=== PATIENT | male | born 1970 | race Caucasian/White ===

== ENCOUNTER 2023-06-22 00:40 | Observation (INO) ==
--- NOTE | 2023-06-22 00:48 | Emergency Department Note ---
History of Present Illness General Chief complaint: Chest Pain Stated complaint: CHEST PAIN,SOB Time Seen by Provider: 06/22/23 00:47 History of Present Illness Maximum Pain Intensity: 6 This 52-year-old male patient presents to the emergency department for evaluation of chest pain and shortness of breath that started around 11 am. The patient states that he has had severe midsternal chest pain and shortness of breath for most of the day. Pain is radiating to his left ear and left s houlder. He has a history of acid reflux and initially thought it was acid reflux, but now he is concerned about his heart. He rates his discomfort as 6/10. They were recently on vacation camping at [facility] and he forgot to take his medications so he went 1 week without his medication. He restarted his medication 4 days ago. He tried OTC acid reflux medications and tums without improvement tonight. He denies a history of heart problems. He had a stress test and ECHO at least 10 years ago that was normal per patient. His mom had a heart valve replaced and dad with a history of HTN. No family history of RI or other cardiac problems. The patient denies recent long car or plane rides or recent injury/trauma/surgery. Denies any personal or family history of blood clots or bleeding disorders. Denies any hormonal medication use. Denies any hemoptysis. Has had intermittent cramping in his right calf when he wakes up, but it resolves after stretching. No known tick bites. He has not taken any aspirin today. Denies fevers or URI symptoms. No history of IV drug use. No history of previous known heart murmur. He is on Paroxetine 20 mg, Propranolol 40 mg, Atorvastatin 20 mg, Nexium 40 mg, Lisinopril 40 mg, amlodipine 5 mg. Denies any erectile dysfunction medications. Home Medications Medication Instructions Recorded Confirmed Type amlodipine 5 mg tablet 5 mg PO DAILY 06/22/23 06/22/23 History atorvastatin 20 mg tablet 20 mg PO DAILY 06/22/23 06/22/23 History esomeprazole magnesium 40 mg 40 mg PO DAILY 06/22/23 06/22/23 History capsule,delayed release lisinopril 40 mg tablet 40 mg PO DAILY 06/22/23 06/22/23 History propranolol 40 mg tablet 40 mg PO BID 06/22/23 06/22/23 History Allergies Allergy/AdvReac Type Severity Reaction Status Date / Time hydrocodone Allergy Rash Verified 06/22/23 00:59 Past Med/Surg History Medical History Depression GERD (gastroesophageal reflux disease) High cholesterol Hypertension Surgical History History of appendectomy Social History Smoking Status: Never smoker Second Hand Exposure: No; Hx Alcohol Use: Yes Alcohol type: beer Hx Substance Use: No Preferred Language: Telugu Communication Ability: Effective 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 Physical Exam Vital Signs Vital Signs - 24 hr 06/22/23 00:43 06/22/23 01:02 06/22/23 01:30 Temperature 36.8 C Temperature Source Temporal Artery Scan Pulse Rate 67 64 63 Pulse Rate [Apical] Pulse Rate from SpO2 Sensor Pulse Rhythm [Apical] Pulse Strength [Apical] Respiratory Rate 20 18 Respiratory Effort / Characteristics Non-Labored Spontaneous Respiratory Depth Normal Blood Pressure 169/100 H Blood Pressure [Right Arm] Blood Pressure Mean 123 Blood Pressure Mean [Right Arm] Pulse Oximetry 99 96 Oxygen Delivery Method Room Air Room Air Sepsis Recent Fever Within 48 Hours No Sepsis New/Unexplained Change in Mental Status No Sepsis Action Taken by Nursing No Action Required 06/22/23 00:56 06/22/23 01:00 06/22/23 01:01 Temperature Temperature Source Pulse Rate 66 63 62 Pulse Rate [Apical] Pulse Rate from SpO2 Sensor 67 64 64 Pulse Rhythm [Apical] Pulse Strength [Apical] Respiratory Rate 22 18 24 Respiratory Effort / Characteristics Respiratory Depth Blood Pressure Blood Pressure [Right Arm] Blood Pressure Mean Blood Pressure Mean [Right Arm] Pulse Oximetry 97 97 96 Oxygen Delivery Method Sepsis Recent Fever Within 48 Hours Sepsis New/Unexplained Change in Mental Status Sepsis Action Taken by Nursing 06/22/23 01:01 06/22/23 01:10 06/22/23 01:17 Temperature Temperature Source Pulse Rate 60 Pulse Rate [Apical] Pulse Rate from SpO2 Sensor 61 Pulse Rhythm [Apical] Pulse Strength [Apical] Respiratory Rate 16 Respiratory Effort / Characteristics Respiratory Depth Blood Pressure 214/115 H 154/90 H Blood Pressure [Right Arm] Blood Pressure Mean 144 106 Blood Pressure Mean [Right Arm] Pulse Oximetry 96 Oxygen Delivery Method Sepsis Recent Fever Within 48 Hours Sepsis New/Unexplained Change in Mental Status Sepsis Action Taken by Nursing 06/22/23 01:17 06/22/23 01:20 06/22/23 01:30 Temperature Temperature Source Pulse Rate 57 L 58 L 60 Pulse Rate [Apical] Pulse Rate from SpO2 Sensor 58 L 61 59 L Pulse Rhythm [Apical] Pulse Strength [Apical] Respiratory Rate 18 19 18 Respiratory Effort / Characteristics Respiratory Depth Blood Pressure Blood Pressure [Right Arm] Blood Pressure Mean Blood Pressure Mean [Right Arm] Pulse Oximetry 96 96 95 Oxygen Delivery Method Sepsis Recent Fever Within 48 Hours Sepsis New/Unexplained Change in Mental Status Sepsis Action Taken by Nursing 06/22/23 01:40 06/22/23 01:50 06/22/23 02:00 Temperature Temperature Source Pulse Rate 58 L 56 L Pulse Rate [Apical] Pulse Rate from SpO2 Sensor 57 L 56 L Pulse Rhythm [Apical] Pulse Strength [Apical] Respiratory Rate 19 20 Respiratory Effort / Characteristics Respiratory Depth Blood Pressure 137/79 Blood Pressure [Right Arm] Blood Pressure Mean 96 Blood Pressure Mean [Right Arm] Pulse Oximetry 96 95 Oxygen Delivery Method Sepsis Recent Fever Within 48 Hours Sepsis New/Unexplained Change in Mental Status Sepsis Action Taken by Nursing 06/22/23 02:00 06/22/23 02:10 06/22/23 02:20 Temperature Temperature Source Pulse Rate 53 L 55 L 59 L Pulse Rate [Apical] Pulse Rate from SpO2 Sensor 53 L 55 L 60 Pulse Rhythm [Apical] Pulse Strength [Apical] Respiratory Rate 15 16 17 Respiratory Effort / Characteristics Respiratory Depth Blood Pressure Blood Pressure [Right Arm] Blood Pressure Mean Blood Pressure Mean [Right Arm] Pulse Oximetry 96 95 95 Oxygen Delivery Method Sepsis Recent Fever Within 48 Hours Sepsis New/Unexplained Change in Mental Status Sepsis Action Taken by Nursing 06/22/23 02:30 06/22/23 02:32 06/22/23 02:32 Temperature Temperature Source Pulse Rate 60 63 Pulse Rate [Apical] Pulse Rate from SpO2 Sensor 61 65 Pulse Rhythm [Apical] Pulse Strength [Apical] Respiratory Rate 17 20 Respiratory Effort / Characteristics Respiratory Depth Blood Pressure 152/89 H Blood Pressure [Right Arm] Blood Pressure Mean 96 Blood Pressure Mean [Right Arm] Pulse Oximetry 95 96 Oxygen Delivery Method Sepsis Recent Fever Within 48 Hours Sepsis New/Unexplained Change in Mental Status Sepsis Action Taken by Nursing 06/22/23 02:41 Temperature Temperature Source Pulse Rate Pulse Rate [Apical] 58 L Pulse Rate from SpO2 Sensor Pulse Rhythm [Apical] Regular Pulse Strength [Apical] Normal Respiratory Rate 16 Respiratory Effort / Characteristics Non-Labored Respiratory Depth Normal Blood Pressure Blood Pressure [Right Arm] 133/76 Blood Pressure Mean Blood Pressure Mean [Right Arm] 95 Pulse Oximetry 98 Oxygen Delivery Method Sepsis Recent Fever Within 48 Hours Sepsis New/Unexplained Change in Mental Status Sepsis Action Taken by Nursing VITALS: Vitals are noted on the nurse's note and reviewed by myself. GENERAL: Non toxic, no acute distress, non-diaphoretic. SKIN: Capillary refill <2 sec. EYES: PERRLA. EOMI. Conjunctivae without injection, sclerae without icterus. NOSE: Patent without discharge. MOUTH: Mucous membranes moist. Uvula midline. Airway patent. NECK: Supple without nuchal rigidity. HEART: Regular rate and rhythm with Grade II/ murmur without obvious gallops or rubs. LUNGS: Clear to auscultation bilaterally without wheezes, rales or rhonchi. No retractions or accessory muscle use. ABDOMEN: Positive bowel sounds x 4. Normal tympanic percussion. Soft, nontender, without masses or organomegaly. Higgins sign negative. No guarding or rebound tenderness. No focal RLQ or LLQ tenderness. MUSCULOSKELETAL: No gross musculoskeletal defects. Bilateral calves are nontender to palpation. Negative Homans' sign bilaterally. Peripheral pulses 2+ and equal in the bilateral upper and lower extremities. NEURO: Patient was alert and oriented to person place and time. No focal neuro logical deficits. Course Administered Medications Amlodipine Besylate (Amlodipine Besylate 5 Mg Tab) 5 mg PO DAILY [facility] Stop: 07/22/23 08:59 Last Admin: 06/22/23 07:39 Dose: 5 mg Documented By: CLARISA Atorvastatin Calcium (Atorvastatin 20 Mg Tab) 20 mg PO DAILY [facility] Stop: 07/22/23 08:59 Last Admin: 06/22/23 07:39 Dose: 20 mg Documented By: CLARISA Famotidine (Famotidine 40 Mg Tablet) 40 mg PO BID PRN PRN Reason: acid reflux/heartburn/chest pa Stop: 07/22/23 04:18 Last Admin: 06/22/23 07:39 Dose: 40 mg Documented By: CLARISA Lisinopril (Lisinopril 40 Mg Tab) 40 mg PO DAILY [facility] Stop: 07/22/23 08:59 Last Admin: 06/22/23 07:41 Dose: 40 mg Documented By: CLARISA Pantoprazole Sodium (Pantoprazole 40 Mg Tab) 40 mg PO DAILY [facility] Stop: 07/22/23 08:59 Last Admin: 06/22/23 07:40 Dose: 40 mg Documented By: CLARISA Propranolol HCl (Propranolol Hcl 20 Mg Tab) 40 mg PO BID [facility] Stop: 07/22/23 08:59 Last Admin: 06/22/23 07:41 Dose: Not Given Documented By: CLARISA Discontinued Medications Aspirin (Aspirin Chew 324 Mg) 324 mg PO NOW STA Stop: 06/22/23 01:03 Last Admin: 06/22/23 01:11 Dose: 324 mg Documented By: MED Sodium Chloride (Nss) 500 mls @ 999 mls/hr IV .Q31M STA Stop: 06/22/23 01:32 Last Infusion: 06/22/23 02:17 Dose: 0 mls/hr Documented By: net fisher: 06/22/23 01:13 Dose: 999 mls/hr Documented By: CHEN Famotidine (Pepcid 20mg Iv Push) 20 mg in 5 mls @ 2.5 mls/min IV NOW STA Stop: 06/22/23 02:35 Last Admin: 06/22/23 02:48 Dose: 2.5 mls/min Documented By: AUNG Nitroglycerin (Nitroglycerin Sl 0.4 Mg/Tab Tab) 0.4 mg SL NOW STA Stop: 06/22/23 01:03 Last Admin: 06/22/23 01:12 Dose: 0.4 mg Documented By: CHEN Nitroglycerin (Nitroglycerin Sl 0.4 Mg/Tab Tab) 0.4 mg SL NOW STA Stop: 06/22/23 01:29 Last Admin: 06/22/23 01:29 Dose: 0.4 mg Documented By: MED Medical Decision Making Differential Diagnosis Differential diagnosis includes angina, RI, pericarditis, myocarditis, aortic dissection, pleurisy, pneumothorax, PE, pneumonia, pneumomediastinum, esoph agitis, esophageal spasm, GERD, perforated esophagus, perforated duodenal/gastric ulcer, pancreatitis, cholecystitis, costochondritis, musculoskeletal, bronchitis, URI, or others. Laboratory Data Attestation: I reviewed the patient's lab results. 06/22/23 01:02 06/22/23 01:02 Lab Results 06/22/23 06/22/23 06/22/23 Range/Units 01:02 01:02 01:02 WBC 10.43 (4.8-10.8) K/ul RBC 4.69 L (4.70-6.10) M/uL Hgb 14.1 (14.0-18.0) g/dl Hct 41.5 L (42.0-52.0) % MCV 88.5 (80.0-100.0) fL MCH 30.1 (25.0-34.0) pg MCHC 34.0 (32.0-36.0) g/dL RDW Std Deviation 42.0 (36.4-46.3) fL RDW Coeff of Keira 12.9 (11.5-14.5) % Plt Count 215 (130-400) K/uL MPV 10.8 (9.4-12.4) fL Immature Gran % (Auto) 0.3 % Neut % (Auto) 65.4 % Lymph % (Auto) 19.7 % Trigg % (Auto) 13.7 % Eos % (Auto) 0.5 % Baso % (Auto) 0.4 % Neut # (Auto) 6.83 H (1.40-6.50) K/uL Lymph # (Auto) 2.05 (1.2-3.4) K/uL Trigg # (Auto) 1.43 H (0.11-0.59) K/uL Eos # (Auto) 0.05 (0-0.50) K/uL Baso # (Auto) 0.04 (0-0.2) K/uL Immature Gran # (Auto) 0.03 (0.01-0.20) K/uL PT 10.6 (9.0-12.0) Seconds INR 1.0 (0.9-1.1) APTT 24.4 (21.0-31.0) Seconds PTT Ratio 0.9 D-Dimer 240 (0-500) ug/L FEU Sodium 135 L (136-145) mmol/L Potassium 3.8 (3.5-5.1) mmol/L Chloride 103 (98-107) mmol/L Carbon Dioxide 26 (21-32) mmol/L Anion Gap 6 (3-11) BUN 18 (6-23) mg/dl Creatinine 1.05 (0.6-1.4) mg/dl Est Cr Clr Drug Dosing 103.1 ml/min Est GFR ( Amer) 93.5 ml/min Est GFR (Non-Af Amer) 80.7 ml/min BUN/Creatinine Ratio 17.1 (10-20) Glucose 118 H (70-99(Fasting)) mg/dl Calcium 9.2 (8.6-10.3) mg/dl Magnesium 2.1 (1.7-2.4) mg/dl Total Bilirubin 1.0 (0.2-1.0) mg/dl AST 16 (13-39) U/L ALT 19 (7-52) U/L Alkaline Phosphatase 70 (34-104) U/L Troponin I High Sens 5.4 (0-20) pg/ml Total Protein 6.8 (6.0-8.3) gm/dl Albumin 4.2 (3.4-5.0) gm/dl Globulin 2.6 (2.5-4.0) gm/dl Albumin/Globulin Ratio 1.6 (0.9-2) Lipase 32 (11-82) U/L TSH (0.300-4.500) uIu/ml Urine Color Urine Appearance (Clear) Urine pH (4.5-7.5) Ur Specific Trego (1.000-1.030) Urine Protein (Negative) Urine Glucose (UA) (Negative) Urine Ketones (Negative) Urine Blood (Negative) Urine Nitrite (Negative) Urine Bilirubin (Negative) Urine Urobilinogen (Negative) Ur Leukocyte Esterase (Negative) SARS-CoV-2, RNA, NAAT (NEGATIVE) 06/22/23 06/22/23 06/22/23 Range/Units 01:02 01:18 01:24 WBC (4.8-10.8) K/ul RBC (4.70-6.10) M/uL Hgb (14.0-18.0) g/dl Hct (42.0-52.0) % MCV (80.0-100.0) fL MCH (25.0-34.0) pg MCHC (32.0-36.0) g/dL RDW Std Deviation (36.4-46.3) fL RDW Coeff of Keira (11.5-14.5) % Plt Count (130-400) K/uL MPV (9.4-12.4) fL Immature Gran % (Auto) % Neut % (Auto) % Lymph % (Auto) % Trigg % (Auto) % Eos % (Auto) % Baso % (Auto) % Neut # (Auto) (1.40-6.50) K/uL Lymph # (Auto) (1.2-3.4) K/uL Trigg # (Auto) (0.11-0.59) K/uL Eos # (Auto) (0-0.50) K/uL Baso # (Auto) (0-0.2) K/uL Immature Gran # (Auto) (0.01-0.20) K/uL PT (9.0-12.0) Seconds INR (0.9-1.1) APTT (21.0-31.0) Seconds PTT Ratio D-Dimer (0-500) ug/L FEU Sodium (136-145) mmol/L Potassium (3.5-5.1) mmol/L Chloride (98-107) mmol/L Carbon Dioxide (21-32) mmol/L Anion Gap (3-11) BUN (6-23) mg/dl Creatinine (0.6-1.4) mg/dl Est Cr Clr Drug Dosing ml/min Est GFR ( Amer) ml/min Est GFR (Non-Af Amer) ml/min BUN/Creatinine Ratio (10-20) Glucose (70-99(Fasting)) mg/dl Calcium (8.6-10.3) mg/dl Magnesium (1.7-2.4) mg/dl Total Bilirubin (0.2-1.0) mg/dl AST (13-39) U/L ALT (7-52) U/L Alkaline Phosphatase (34-104) U/L Troponin I High Sens (0-20) pg/ml Total Protein (6.0-8.3) gm/dl Albumin (3.4-5.0) gm/dl Globulin (2.5-4.0) gm/dl Albumin/Globulin Ratio (0.9-2) Lipase (11-82) U/L TSH 1.578 (0.300-4.500) uIu/ml Urine Color Yellow Urine Appearance Clear (Clear) Urine pH 7.0 (4.5-7.5) Ur Specific Trego 1.023 (1.000-1.030) Urine Protein Negative (Negative) Urine Glucose (UA) Negative (Negative) Urine Ketones Negative (Negative) Urine Blood Negative (Negative) Urine Nitrite Negative (Negative) Urine Bilirubin Negative (Negative) Urine Urobilinogen Negative (Negative) Ur Leukocyte Esterase Negative (Negative) SARS-CoV-2, RNA, NAAT NEGATIVE (NEGATIVE) 06/22/23 Range/Units 02:52 WBC (4.8-10.8) K/ul RBC (4.70-6.10) M/uL Hgb (14.0-18.0) g/dl Hct (42.0-52.0) % MCV (80.0-100.0) fL MCH (25.0-34.0) pg MCHC (32.0-36.0) g/dL RDW Std Deviation (36.4-46.3) fL RDW Coeff of Keira (11.5-14.5) % Plt Count (130-400) K/uL MPV (9.4-12.4) fL Immature Gran % (Auto) % Neut % (Auto) % Lymph % (Auto) % Trigg % (Auto) % Eos % (Auto) % Baso % (Auto) % Neut # (Auto) (1.40-6.50) K/uL Lymph # (Auto) (1.2-3.4) K/uL Trigg # (Auto) (0.11-0.59) K/uL Eos # (Auto) (0-0.50) K/uL Baso # (Auto) (0-0.2) K/uL Immature Gran # (Auto) (0.01-0.20) K/uL PT (9.0-12.0) Seconds INR (0.9-1.1) APTT (21.0-31.0) Seconds PTT Ratio D-Dimer (0-500) ug/L FEU Sodium (136-145) mmol/L Potassium (3.5-5.1) mmol/L Chloride (98-107) mmol/L Carbon Dioxide (21-32) mmol/L Anion Gap (3-11) BUN (6-23) mg/dl Creatinine (0.6-1.4) mg/dl Est Cr Clr Drug Dosing ml/min Est GFR ( Amer) ml/min Est GFR (Non-Af Amer) ml/min BUN/Creatinine Ratio (10-20) Glucose (70-99(Fasting)) mg/dl Calcium (8.6-10.3) mg/dl Magnesium (1.7-2.4) mg/dl Total Bilirubin (0.2-1.0) mg/dl AST (13-39) U/L ALT (7-52) U/L Alkaline Phosphatase (34-104) U/L Troponin I High Sens 5.9 (0-20) pg/ml Total Protein (6.0-8.3) gm/dl Albumin (3.4-5.0) gm/dl Globulin (2.5-4.0) gm/dl Albumin/Globulin Ratio (0.9-2) Lipase (11-82) U/L TSH (0.300-4.500) uIu/ml Urine Color Urine Appearance (Clear) Urine pH (4.5-7.5) Ur Specific Trego (1.000-1.030) Urine Protein (Negative) Urine Glucose (UA) (Negative) Urine Ketones (Negative) Urine Blood (Negative) Urine Nitrite (Negative) Urine Bilirubin (Negative) Urine Urobilinogen (Negative) Ur Leukocyte Esterase (Negative) SARS-CoV-2, RNA, NAAT (NEGATIVE) Imaging Data Attestation: I personally reviewed and interpreted this imaging study as follows: My Impression: Chest x-ray was interpreted by myself as borderline cardiomegaly without acute cardiopulmonary etiology. Radiology report still pending. Radiologist's Impression: Chest X-Ray 06/22/23 01:02 SINGLE VIEW CHEST CLINICAL HISTORY: Atypical chest pain. FINDINGS: 2 AP, portable, upright chest radiographs are obtained. No prior jaron dies are available for comparison at the time of dictation. The cardiomediastinal silhouette is top normal for projection. There is mild elevation of the right hemidiaphragm with bibasilar atelectasis. There are punctate calcified granulomas. No airspace consolidation or large pleural effusion is seen. No pneumothorax is identified. The bony thorax is grossly intact. IMPRESSION: No acute cardiopulmonary abnormality. ACT 112: Negative or not required by law. Electronically signed by: Christian Arndt M.D. 06/22/2023 7:28 AM MDM Narrative I examined the patient. An IV lock was placed and labs were drawn. Initial EKG was interpreted by myself as normal sinus rhythm at 65 bpm with no acute ST or T wave changes. Repeat EKG was interpreted by myself as normal sinus rhythm at 62 bpm with no acute ST or T wave changes. Continuous conveyor monitor: Order was placed for continuous conveyor monitor. Patient was placed on the conveyor monitor and continuous pulse ox. Patient was noted to be in normal sinus rhythm at an initial rate of 68 bpm per my interpretation. He was given aspirin 324 mg p.o. chewed. He was given nitroglycerin 0.4 mg sublingual with improvement of his pain from 7/10 down to 4/10. He was given a second nitroglycerin 0.4 mg sublingual with resolution of his chest pain. He was given Pepcid 20 mg IV for some acid reflux during his ER stay. He was hydrated with normal saline solution 500 mL bolus. CBC without leukocytosis, anemia, or thrombocytopenia. Coags were normal. Sodium 135 and glucose 118, but CMP otherwise normal. Lipase normal. Magnesium normal. TSH normal. D-dimer normal. High-sensitivity troponins x2 were normal. Chest x-ray was interpreted by myself as borderline cardiomegaly without acute cardiopulmonary etiology. Radiology report still pending. The patient has had chest pain since 11 AM this morning. He did forget to take his medication with him on vacation and had not taken his medication for 1 week. He did restart his medications 4 days ago. While the patient's symptoms may be secondary to his acid reflux, cannot rule out cardiac etiology. Last cardiac work-up was greater than 10 years ago. The patient's pain resolved after 2 doses of nitroglycerin. He also has a heart murmur on exam and the patient denies a known history of a heart murmur. He has not had any fevers and denies any IV drug use. I had a meaningful discussion about this patient with Dr. James who agrees with my assessment and the treatment plan. We feel the patient requires admission for further evaluation and treatment. I spoke with the on- call hospitalist who agreed to admit the patient for further management. Please refer to their dictation for further details. The patient was admitted in stable condition. Impression & Plan Chest pain Discharge Plan Visit Data Chief Complaint: Chest Pain Stated Complaint: CHEST PAIN,SOB ED Provider: Mariana James ED Midlevel Provider: Deja Barrera Discharge Problem: Chest pain Patient Disposition: Admitted As Inpatient Condition: Good Discharge Instructions Interventions: ED Discharge Assessment Last Done: 06/22/23 04:03
[2023-06-22] MEDS ORDERED: SODIUM CHLORIDE 0.9% 500 ML IV STA (01:02)
[2023-06-22] MEDS ORDERED: NITROGLYCERIN SL 0.4 MG/TAB TAB SL STA ×2 (01:02→01:28)
[2023-06-22] MEDS ORDERED: ASPIRIN CHEW 324 MG PO STA (01:02)
[2023-06-22 01:25] LABS: Basophils # (auto) 0.04 K/uL (0-0.2); Basophils % (auto) 0.4 %; Eosinophils # (auto) 0.05 K/uL (0-0.50); Eosinophils % (auto) 0.5 %; Hematocrit (blood only) 41.5 % (42.0-52.0); Hemoglobin 14.1 g/dl (14.0-18.0); Immature Granulocytes # (auto) 0.03 K/uL (0.01-0.20); Immature Granulocytes % (auto) 0.3 %; Lymphocytes # (auto) 2.05 K/uL (1.2-3.4); Lymphocytes % (auto) 19.7 %; Mean Corpuscular Hemoglobin 30.1 pg (25.0-34.0); Mean Corpuscular Volume 88.5 fL (80.0-100.0); Mean Platelet Volume 10.8 fL (9.4-12.4); Monocytes # (auto) 1.43 K/uL (0.11-0.59); Monocytes % (auto) 13.7 %; Neutrophils # (auto) 6.83 K/uL (1.40-6.50); Neutrophils % (auto) 65.4 %; Platelet Count 215 K/uL (130-400); RDW Coefficient of Variation 12.9 % (11.5-14.5); Red Blood Count 4.69 M/uL (4.70-6.10); White Blood Count 10.43 K/ul (4.8-10.8)
[2023-06-22 01:33] LABS: Albumin Globulin Ratio 1.6 (0.9-2); Albumin Level 4.2 gm/dl (3.4-5.0); BUN Creatinine Ratio 17.1 (10-20); Calcium 9.2 mg/dl (8.6-10.3); Creatinine Clr Calc Pharmacy 103.1 ml/min; Est GFR (African American) 93.5 ml/min; Est GFR (Non-African American) 80.7 ml/min; Globulin 2.6 gm/dl (2.5-4.0); Magnesium 2.1 mg/dl (1.7-2.4); Potassium 3.8 mmol/L (3.5-5.1); Total Protein 6.8 gm/dl (6.0-8.3)
[2023-06-22 01:36] LABS: Appearance Urine Clear (Clear); Bilirubin Urine Negative (Negative); Blood Urine Negative (Negative); Color Urine Yellow; Glucose Urine UA Negative (Negative); Ketones Urine Negative (Negative); Leukocyte Esterase Urine Negative (Negative); Nitrite Urine Negative (Negative); Protein Urine Negative (Negative); Specific Gravity Urine 1.023 (1.000-1.030); Urobilinogen Urine Negative (Negative)
[2023-06-22 01:40] LABS: Troponin I High Sensitivity 5.4 pg/ml (0-20)
[2023-06-22 01:55] LABS: D Dimer 240 ug/L FEU (0-500); Partial Thromboplastin Ratio 0.9; Partial Thromboplastin Time 24.4 Seconds (21.0-31.0); Prothrombin Time 10.6 Seconds (9.0-12.0)
[2023-06-22] MEDS ORDERED: FAMOTIDINE 20MG IV PUSH 20 MG/5 ML SYR IV STA (02:34)
--- NOTE | 2023-06-22 03:18 | History & Physical Report ---
Date of Service June 22, 2023 Assessment & Plan (1) Chest pain: Plan: -Clinical history suggests chest pain is driven by acid reflux exacerbation due to diet + being off PPI x1 week -Troponin negative x2, EKG w/o acute ST change -Echocardiogram ordered -Telemetry monitoring -Deferring stress test on admission due to low suspicion for ACS (2) Hypertension: Plan: -Continue amlodipine, lisinopril (3) High cholesterol: Plan: -Continue statin (4) GERD (gastroesophageal reflux disease): Plan: -Continue Nexium or formulary equivalent -Famotidine PRN Plan FENGI: NPO for potential procedure in AM, though low likelihood Code status: Full DVT prophylaxis: Ambulation Isolation: None Disposition: Medical/surgical with telemetry History of Present Illness Chief Complaint: chest pain Primary Care Provider: SHANNON GOSS Pt is 52 yo M with PMH GERD, HTN, HLD presenting with chest pain. Pt reports onset of chest pain around noon on 06/21- severity 04/27, midsternal, radiation to throat, "burning" quality, felt similar to heartburn episodes. Later in evening pt noticed associated mild dyspnea and came to ED. Of note, pt has been on vacation for 1 week and he did not bring his medications (resumed 4 days prior). He reports consuming acidic, spicy, oily foods and drinking more coffee than usual. Denies relief from OTC reflux medications for this chest pain. Pt denies any PMH of cardiac disease. He did have normal stress testing in late . Pt arrived to ER hemodynamically stable. EKG unremarkable, troponin negative x2, CXR normal, no other significant abnormality on labwork. ER interventions include aspirin 324 mg, nitroglycerin SL x2, NSS 500cc bolus, famotidine 20 mg IV. At present, pt reports significant improvement in chest pain after receiving famotidine. He states this is very similar to his typical reflux. No other acute complaints. Allergies Allergy/AdvReac Type Severity Reaction Status Date / Time hydrocodone Allergy Rash Verified 06/22/23 00:59 Home Medications Medication Instructions Recorded Confirmed Type amlodipine 5 mg tablet 5 mg PO DAILY 06/22/23 06/22/23 History atorvastatin 20 mg tablet 20 mg PO DAILY 06/22/23 06/22/23 History esomeprazole magnesium 40 mg 40 mg PO DAILY 06/22/23 06/22/23 History capsule,delayed release lisinopril 40 mg tablet 40 mg PO DAILY 06/22/23 06/22/23 History propranolol 40 mg tablet 40 mg PO BID 06/22/23 06/22/23 History Past Med/Surg History Medical History Depression GERD (gastroesophageal reflux disease) High cholesterol Hypertension Surgical History History of appendectomy Social History Smoking Status: Never smoker Second Hand Exposure: No; Hx Alcohol Use: Yes Alcohol type: beer Hx Substance Use: No Preferred Language: Divehi Communication Ability: Effective 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 Beliefs That Will Affect Care: None Current Living Situation: Family Other Information That Helps Us Care for You: No Feels Safe at Home: Yes Safety Concerns: Feels Safe At This Time Assistive Devices: Glasses Assistive Devices Comment: reading glasses Review of Systems Review of Systems: Per HPI Physical Exam Physical Exam: General: well-appearing, no acute distress HEENT: PERRL, EOMI, conjunctivae clear without injection, anicteric sclerae, moist mucous membranes, clear oropharynx without exudate or erythema Neck: supple, trachea midline, no thyromegaly, no JVD, no cervical lymphadenopathy CV: RRR, normal S1 and S2, no murmurs Resp: CTAB, no increased work of breathing, no crackles or wheezes Abd: Soft, nontender, nondistended, no guarding or rebound, no hepatosplenomegaly MSK: Normal bulk of all four extremities Neuro: AOx3, no focal motor or sensory deficits Skin: no rashes or lesions, warm and dry Ext: no LE peripheral edema or erythema, capillary refill <2s in all four extremities, 2+ LE peripheral pulses b/l Results & Data Results & Data Vital Signs (Past 12 Hours) Vital Signs Temp Pulse Pulse Resp BP BP Pulse Ox 06/22/23 02:41 58 L 16 133/76 98 06/22/23 02:32 63 20 96 06/22/23 02:32 152/89 H 06/22/23 02:30 60 17 95 06/22/23 02:20 59 L 17 95 06/22/23 02:10 55 L 16 95 06/22/23 02:00 53 L 15 96 06/22/23 02:00 137/79 06/22/23 01:50 56 L 20 95 06/22/23 01:40 58 L 19 96 06/22/23 01:30 60 18 95 06/22/23 01:20 58 L 19 96 06/22/23 01:17 57 L 18 96 06/22/23 01:17 154/90 H 06/22/23 01:10 60 16 96 06/22/23 01:01 214/115 H 06/22/23 01:01 62 24 96 06/22/23 01:00 63 18 97 06/22/23 00:56 66 22 97 06/22/23 01:30 63 18 96 06/22/23 01:02 64 06/22/23 00:43 36.8 C 67 20 169/100 H 99 O2 Del Method 06/22/23 02:41 06/22/23 02:32 06/22/23 02:32 06/22/23 02:30 06/22/23 02:20 06/22/23 02:10 06/22/23 02:00 06/22/23 02:00 06/22/23 01:50 06/22/23 01:40 06/22/23 01:30 06/22/23 01:20 06/22/23 01:17 06/22/23 01:17 06/22/23 01:10 06/22/23 01:01 06/22/23 01:01 06/22/23 01:00 06/22/23 00:56 06/22/23 01:30 Room Air 06/22/23 01:02 06/22/23 00:43 Room Air Supervising Physician Co-Signing Physician Notes Attending addendum: I have physically seen this patient, have supervised the medical residents activities, and agree with the H&P unless as otherwise noted. Assessment and Plan: Chest pain/hypertension- The patient will be admitted to telemetry for serial cardiac enzymes, serial EKG's, cardiac rhythm monitoring and a 2-D echocardiogram with Dopplers. Continue amlodipine, propranolol and lisinopril Initial troponin negative at 5.4 GERD- Patient had been without his Nexium for several days Placed on pantoprazole by formulary interchange in hospital Hyperlipidemia- Continue atorvastatin Remaining orders and notations as noted Resident Activity Tracking Resident Involvement: Resident Care Provided Care Provided: Adult Hospital Medicine
[2023-06-22] MEDS ORDERED: FAMOTIDINE 40 MG TABLET PO PRN (04:19)
--- NOTE | 2023-06-22 07:14 | Electrocardiogram Report ---
Test Reason : Blood Pressure : / mmHG Vent. Rate : 065 BPM Atrial Rate : 065 BPM P-R Int : 196 ms QRS Dur : 088 ms QT Int : 384 ms P-R-T Axes : 039 011 044 degrees QTc Int : 399 ms Normal sinus rhythm Normal ECG No previous ECGs available Confirmed by Don Ramirez ([id number]) on 06/22/2023 7:14:17 AM Referred By: REFERRED SELF Confirmed By:Feliciano Ramirez
--- NOTE | 2023-06-22 07:14 | Electrocardiogram Report ---
Test Reason : Blood Pressure : / mmHG Vent. Rate : 062 BPM Atrial Rate : 062 BPM P-R Int : 206 ms QRS Dur : 088 ms QT Int : 418 ms P-R-T Axes : 034 002 035 degrees QTc Int : 424 ms Normal sinus rhythm Normal ECG When compared with ECG of 22-JUN-2023 00:49, (unconfirmed) No significant change was found Confirmed by Don Ramirez ([id number]) on 06/22/2023 7:14:45 AM Referred By: REFERRED SELF Confirmed By:Feliciano Ramirez
--- NOTE | 2023-06-22 07:30 | XRay Report ---
SINGLE VIEW CHEST CLINICAL HISTORY: Atypical chest pain. FINDINGS: 2 AP, portable, upright chest radiographs are obtained. No prior studies are available for comparison at the time of dictation. The cardiomediastinal silhouette is top normal for projection. T here is mild elevation of the right hemidiaphragm with bibasilar atelectasis. There are punctate calc ified granulomas. No airspace consolidation or large pleural effusion is seen. No pneumothorax is deborah ntified. The bony thorax is grossly intact. IMPRESSION: No acute cardiopulmonary abnormality. ACT 112: Negative or not required by law. Electronically signed by: Christian Arndt M.D. 06/22/2023 7:28 AM
[2023-06-22] MEDS ORDERED: PANTOprazole 40 MG TAB PO SCH (09:00)
[2023-06-22] MEDS ORDERED: lisinopril 40 MG TAB PO SCH (09:00)
[2023-06-22] MEDS ORDERED: amLODIPine BESYLATE 5 MG TAB PO SCH (09:00)
[2023-06-22] MEDS ORDERED: PROPRANOLOL HCL 20 MG TAB PO SCH (09:00)
[2023-06-22] MEDS ORDERED: ATORVASTATIN 20 MG TAB PO SCH (09:00)
--- NOTE | 2023-06-22 11:37 | XCELERA ---
[id number] \\[email or web address]\[id number]
--- NOTE | 2023-06-22 12:56 | Discharge Summary ---
Date of Service June 22, 2023 Admission HPI Per Admitting Provider Pt is 52 yo M with PMH GERD, HTN, HLD presenting with chest pain. Pt reports onset of chest pain around noon on 06/21- severity 04/27, midsternal, radiation to throat, "burning" quality, felt similar to heartburn episodes. Later in evening pt noticed associated mild dyspnea and came to ED. Of note, pt has been on vacation for 1 week and he did not bring his medications (resumed 4 days prior). He reports consuming acidic, spicy, oily foods and drinking more coffee than usual. Denies relief from OTC reflux medications for this chest pain. Pt denies any PMH of cardiac disease. He did have normal stress testing in late . Pt arrived to ER hemodynamically stable. EKG unremarkable, troponin negative x2, CXR normal, no other significant abnormality on labwork. ER interventions include aspirin 324 mg, nitroglycerin SL x2, NSS 500cc bolus, famotidine 20 mg IV. At present, pt reports significant improvement in chest pain after receiving famotidine. He states this is very similar to his typical reflux. No other acute complaints. Admission Exam Per Admitting Provider General: well-appearing, no acute distress HEENT: PERRL, EOMI, conjunctivae clear without injection, anicteric sclerae, moist mucous membranes, clear oropharynx without exudate or erythema Neck: supple, trachea midline, no thyromegaly, no JVD, no cervical lymphaden opathy CV: RRR, normal S1 and S2, no murmurs Resp: CTAB, no increased work of breathing, no crackles or wheezes Abd: Soft, nontender, nondistended, no guarding or rebound, no hepatosplenomegaly MSK: Normal bulk of all four extremities Neuro: AOx3, no focal motor or sensory deficits Skin: no rashes or lesions, warm and dry Ext: no LE peripheral edema or erythema, capillary refill <2s in all four ex tremities, 2+ LE peripheral pulses b/l Principal Diagnosis Chest Pain, GERD Discharge Exam Constitutional WD/WN, vitals as above Eyes + anicteric sclerae ENMT Ears: no external ear abnormality Nose: no external nose abnormality Moist mucous membranes Respiratory normal respiratory effort, lungs clear to auscultation Cardiovascular Rate/Rhythm: regular rate and regular rhythm No lower extremity edema Chest (Breasts) Additional Comments: No pain with palpation of chest/sternum Gastrointestinal (Abdomen) Abdomen soft, nontender, nondistended. Skin no rashes, warm and dry Neurologic moves all extremities Psychiatric A+Ox3, euthymic affect Discharge Data Allergies Allergy/AdvReac Type Severity Reaction Status Date / Time hydrocodone Allergy Rash Verified 06/22/23 00:59 Consultations 06/22/23 03:11 ED Decision to Admit Stat Hospital Course (1) Chest pain: (2) Hypertension: (3) High cholesterol: (4) GERD (gastroesophageal reflux disease): Fernanda Clancy is a 52 year-old male with past medical history of hypertension, hyperlipidemia, GERD who presented to the ED for chest pain. Chest Pain- Secondary to GERD Patient states he and his went out of town and he forgot to bring his medications with him for the week. He had been feeling fine until Saturday afternoon/evening when he started having lower chest/sternum pain which prompted him to go to the ED. He then recalled he had not taken his meds and had been eating more rich foods while on vacation and suspected it could be his acid reflux as he has had similar symptoms with untreated GERD (although typically not as intense). ED workup showed negative high sensitivity troponins x2 and EKG without acute ST change. Lower suspicion for ACS but patient was kept overnight for observation. He had an echocardiogram completed which was WNL and an additional troponin WNL despite still having some residual symptoms. Clinical history suggests chest pain was driven by acid reflux exacerbation due to diet + being off PPI x1 week. Stress test was deferred on admission due to low suspicion for ACS. Patient was comfortable with plan for discharge to resume prior PPI and can utilize [id number] famotidine for residual symptoms. Patient was encouraged to follow up with his primary care provider within the next week. No changes were made to home medications for hypertension, hyperlipidemia. Total Time Total Time Spent Total Time Spent (In Minutes): .<30 Discharge Plan Discharge Items Patient Disposition: Home - Self-Care Reason For Visit: CHEST PAIN RULE OUT Discharge Diagnosis: Chest Pain, Reflux Condition on Discharge: Good Activity: Per Instructions section Non-emergency contact: Primary Care Provider Call non-emergency contact if: you have any medication questions and your symptoms worsen Follow-up/Referrals: SHANNON GOSS [Other] (PLEASE CALL YOUR PRIMARY CARE PROVIDER TO SCHEDULE A HOSPITAL DISCHARGE FOLLOW-UP APPOINTMENT WITHIN 7-10 DAYS) Diet: Regular Addtl Attending Provider Instructions: Mr. Clancy, you were admitted to the hospital for chest discomfort. You recall lower chest pain that started yesterday after missing your GERD medications for about a week while on vacation. You had an EKG, blood tests (Troponin level, shows signs of damage to your heart), and an echocardiogram (ultrasound of the heart) all of which were reassuring that your chest pain was not due to cardiac reasons/heart attack. Medications -No changes were made to your home medications -Continue taking your Nexium as prescribed -You can try [id number] Famotidine (Pepcid) 20mg up to twice daily for residual symptoms Follow Up -Please call your PCP to schedule a hospital discharge follow up appointment within 1 week CALL 911 OR GO TO THE EMERGENCY DEPARTMENT if you experience any of the following: Sudden, severe abdominal pain or nausea/vomiting Severe chest pain, or chest pain that radiates (moves) to your jaw or arm Sudden, severe shortness of breath or difficulty breathing Thank you for allowing us to participate in your care. Pending Studies at Discharge: No Stand-Alone Forms: My [facility] Medications and DC Order Prescriptions: Continued atorvastatin 20 mg tablet 20 mg PO DAILY amlodipine 5 mg tablet 5 mg PO DAILY propranolol 40 mg tablet 40 mg PO BID esomeprazole magnesium 40 mg capsule,delayed release(DR/EC) 40 mg PO DAILY lisinopril 40 mg tablet 40 mg PO DAILY Discharge Orders: Discharge Order (Routine); Ordered 06/22/23 Ordered By: Jerri Pcaheco Admission Data Admit Date/Time: 06/22/23 03:17 Attending Provider: Ronan Daugherty Admit Provider: Favio Duncan Primary Care Provider: SHANNON GOSS Other Providers: Perry Whitman Other Interventions: Discharge Summary Assessment (RN) Last Done: 06/22/23 12:47 Supervising Physician Co-Signing Physician Notes I personally examined the patient and verified all steiner points of history and exam, discussed case, and agree with decision making with Dr Pacheco Feeling good. Relates it really felt like his heartburn. Pain was present for 1-2 hours absolutely unremitting, and worse whenever he was lying flat. Vitals noted, in general he is awake and alert pleasant no distress. Breathing unlabored no accessory muscle use. EKGs without ischemic changes, troponin negative, echo reassuring chest painalmost certainly GERDMI ruled out with negative troponins reassuring EKGs, reassuring echoes. In respect to potential for unstable angina, given that his symptom duration was so many hours unremitting, ruling out GA and ruling out angina essentially are simultaneous. At the same time, we did discuss with his risk factors that under most circumstances stress testing is not unreasonable, but with him not sure I would really recommend it given that this looked so much like reflux. He follows closely with his PCP back home, I said that from my viewpoint I do not think a stress would be necessary, but I would definitely want him to talk it over this PCP who knows the situation far better. Stable for home, resume PPI. Resident Activity Tracking Resident Involvement: Resident Care Provided Care Provided: Adult Hospital Medicine
--- NOTE | 2023-06-22 18:15 | Billing Data ---
Date of Service June 22, 2023 Coding Level of Care Code 72740 IN/OBS DISCH 30 MIN/LESS
--- NOTE | 2023-06-23 05:19 | Billing Data ---
Date of Service June 23, 2023 Coding Level of Care Code 75638 INT INP/OBS CARE
== END 2023-06-22 13:00 | disposition home or self-care (01) ==
LOC: 2N 00:40 → ED 00:40 → SUATTDRO 03:17 → 2N 04:03